=== PATIENT | female | born 1985 | race Caucasian/White ===

== ENCOUNTER 2019-01-01 11:41 | Emergency (ER) | payer OTHER ==
[~2019-01-01] VITALS: Ht 162.6 cm; Wt 38.1 kg
[2019-01-01 11:50] VITALS: BP 107/69
--- NOTE | 2019-01-01 11:54 | NUR ---
PT AMBULATED TO BED WITH FAMILY
--- NOTE | 2019-01-01 12:00 | NUR ---
PT AMBULATED TO RESTROOM TO PROVIDE URINE SAMPLE AT THIS TIME
--- NOTE | 2019-01-01 12:07 | NUR ---
PT BIB FAMILY FOR LOWER ABD PAIN X2 DAYS. SHARP, CRAMPING MID LOWER ABD PAIN RADIATING TO VAGINAL AREA, X2 DAYS. PT ALSO REPORTS LOWER BACK PAIN YESTERDAY. REPORTS VOMITING X2 YESTERDAY, AND CONSTIPATION, LBM TODAY WAS SMALL AND HARD. DENIES FEVER, NAUSEA, OR DYSURIA. VSS. ER MD TO SEE PT. HX SCHLERODERMA, PULMONARY FIBROSIS, ANEMIA
[2019-01-01] MEDS ORDERED: ATA25 PO (12:28)
[2019-01-01] MEDS ORDERED: [UNRECOGNIZED DRUG - OTHER] (12:28)
[2019-01-01] MEDS ORDERED: CEPH250C16 PO (12:28)
[2019-01-01] MEDS ORDERED: ERGO500028 PO (12:28)
[2019-01-01] MEDS ORDERED: SYN.05 PO (12:28)
[2019-01-01] MEDS ORDERED: FOLI0.8T PO (12:28)
[2019-01-01] MEDS ORDERED: PANT40EC PO (12:28)
[2019-01-01] MEDS ORDERED: FURO20TA8 PO (12:28)
[2019-01-01] MEDS ORDERED: [UNRECOGNIZED DRUG - CODE] PO (12:28)
[2019-01-01] MEDS ORDERED: RANI150T8 PO (12:28)
[2019-01-01] MEDS ORDERED: LORA1T PO (12:28)
[2019-01-01] MEDS ORDERED: METR250T2 PO (12:28)
[2019-01-01] MEDS ORDERED: MELO-176 PO (12:28)
[2019-01-01] MEDS ORDERED: [UNRECOGNIZED DRUG - CODE] PO (12:28)
[2019-01-01] MEDS ORDERED: FLUO118.1 TP (12:28)
[2019-01-01] MEDS ORDERED: ALBU0.0912 IH (12:28)
[2019-01-01] MEDS ORDERED: [UNRECOGNIZED DRUG - OTHER] PO (12:29)
[2019-01-01] MEDS ORDERED: BACL10TA4 PO (12:30)
--- NOTE | 2019-01-01 12:57 | NUR ---
PT TAKEN TO CT VIA W/C.
--- NOTE | 2019-01-01 13:14 | NUR ---
lab at bedside
[2019-01-01 13:18] LABS: APPEARANCE,URINE HAZY (CLEAR); BILIRUBIN,URINE NEGATIVE (NEGATIVE); BLOOD, URINE NEGATIVE (NEGATIVE); COLOR,URINE YELLOW (YELLOW); LEUKOCYTE ESTERASE ,URINE NEGATIVE (NEGATIVE); NITRITE, URINE NEGATIVE (NEGATIVE); PH,URINE 7.5 (5.0-9.0); UGLUCOSE NEGATIVE (NEGATIVE)
[2019-01-01 13:27] LABS: RBC,URINE NONE SEEN /HPF (0-5); WBC,URINE 0-5 /HPF (0-5)
[2019-01-01] MEDS ORDERED: MAGNESIUM CITRATE 300 ML BTL PO ONE (13:40)
[2019-01-01 13:52] LABS: EOSINOPHILS % (AUTO) 0.1 % (0.0-4.0); LYMPHOCYTES # (AUTO) 0.4 K/uL (2.5-16.5); WHITE BLOOD COUNT (AUTO) 17.2 K/uL (4.8-10.8)
[2019-01-01 13:57] LABS: BASOPHILS % (AUTO) 0.2 % (0.0-2.0); HEMATOCRIT 38.7 % (36-48); HEMOGLOBIN 12.3 g/dL (12.0-16.0); LYMPHOCYTES % (AUTO) 2.4 % (20.5-51.1); MEAN CORPUSCULAR HEMOGLOBIN 26 pg (27-31); MEAN CORPUSCULAR HGB CONC 32 g/dL (33-37); MEAN CORPUSCULAR VOLUME 80.9 fL (80-94); MONOCYTES # (AUTO) 0.7 K/uL (0.8-1.0); MONOCYTES % (AUTO) 4.1 % (1.7-9.3); NEUTROPHILS % (AUTO) 93.2 % (42.2-75.2); PLATELET COUNT (AUTO) 436 K/uL (140-450); RED BLOOD CELL COUNT(AUTO) 4.78 MIL/uL (4.20-5.40); RED CELL DISTRIBUTION WIDTH 17.9 % (11.6-13.7)
[2019-01-01 13:59] LABS: ANION GAP 14.4 (8-16); CARBON DIOXIDE 28.3 mmol/L (21-32); CREATININE 0.6 mg/dL (0.6-1.3); POTASSIUM 3.7 mmol/L (3.5-5.1)
[2019-01-01 14:05] LABS: ALBUMIN 3.9 g/dL (3.4-5.0); TOTAL BILIRUBIN 0.3 mg/dL (0.0-1.0)
--- NOTE | 2019-01-01 15:23 | NUR ---
Patient discharged with v/s stable. Written and verbal after care instructions given and explained. Patient alert, oriented and verbalized understanding of instructions. Ambulatory with steady gait. All questions addressed prior to discharge. ID band removed. Patient advised to follow up with PMD. Rx of lactulose given. Patient educated on indication of medication including possible reaction and side effects. Opportunity to ask questions provided and answered.
[2019-01-01 15:25] VITALS: BP 112/75
== END 2019-01-01 15:23 | disposition home or self-care (01) ==
LOC: MED 11:41
DX: K59.00 Constipation, unspecified (principal); D64.9 Anemia, unspecified; Z79.899 Other long term (current) drug therapy
CPT/HCPCS: 36415; 80053; 81001; 81025; 83690; 85025; 99284